=== PATIENT | female | born 1995 | race Caucasian/White ===

== ENCOUNTER → 2017-08-17 | Outpatient (CLI) | payer OTHER | LOC: FIMAGING 09:13 | PROVIDERS: ATTEND Student in an Organized Health Care Education/Training Program | DX: O24.111 Pre-existing type 2 diabetes mellitus, in pregnancy, first trimester (principal); O26.01 Excessive weight gain in pregnancy, first trimester; O99.341 Other mental disorders complicating pregnancy, first trimester; Z3A.12 12 weeks gestation of pregnancy ==

== ENCOUNTER → 2017-10-07 | Outpatient (CLI) | payer OTHER | LOC: FIMAGING 10:17 | PROVIDERS: ATTEND Student in an Organized Health Care Education/Training Program | DX: O24.112 Pre-existing type 2 diabetes mellitus, in pregnancy, second trimester (principal); O99.342 Other mental disorders complicating pregnancy, second trimester; F31.9 Bipolar disorder, unspecified; Z3A.20 20 weeks gestation of pregnancy ==

== ENCOUNTER → 2017-11-08 | Outpatient (CLI) | payer OTHER | LOC: FIMAGING 11:14 | PROVIDERS: ATTEND Student in an Organized Health Care Education/Training Program | DX: O24.112 Pre-existing type 2 diabetes mellitus, in pregnancy, second trimester (principal); O26.02 Excessive weight gain in pregnancy, second trimester; Z87.891 Personal history of nicotine dependence; Z3A.24 24 weeks gestation of pregnancy ==

== ENCOUNTER → 2017-12-07 | Outpatient (CLI) | payer OTHER | LOC: FIMAGING 14:38 | PROVIDERS: ATTEND Student in an Organized Health Care Education/Training Program | DX: O26.833 Pregnancy related renal disease, third trimester (principal); O24.113 Pre-existing type 2 diabetes mellitus, in pregnancy, third trimester; O99.340 Other mental disorders complicating pregnancy, unspecified trimester; Z3A.28 28 weeks gestation of pregnancy; Z79.899 Other long term (current) drug therapy ==

== ENCOUNTER → 2018-01-31 | Outpatient (CLI) | payer OTHER | LOC: FIMAGING 14:20 | PROVIDERS: ATTEND Student in an Organized Health Care Education/Training Program | DX: O24.113 Pre-existing type 2 diabetes mellitus, in pregnancy, third trimester (principal); O99.340 Other mental disorders complicating pregnancy, unspecified trimester; Z3A.36 36 weeks gestation of pregnancy ==